=== PATIENT | female | born 1930 | race Caucasian/White ===

== ENCOUNTER 2018-01-25 05:06 | Emergency (ER) | payer OTHER ==
[~2018-01-25] VITALS: Ht 124.5 cm; Wt 43.7 kg
[2018-01-25 05:11] VITALS: TEMP 36.4; Ht 124.5 cm; Wt 43.7 kg
[2018-01-25] MEDS ORDERED: MULT-506 PO (05:47)
--- NOTE | 2018-01-25 06:22 | EMERGENCY ROOM VISIT NOTE ---
History Report prepared by Carlos: Zonia Jha Under the Supervision of: Dr. Margret Graham D.O. First contact with patient: 05:19 Chief Complaint: OTHER COMPLAINT Stated Complaint: COLOSTEMY BAG FULL History of Present Illness The patient is a 87 year old female who presents to the Emergency Room with complaints of drainage from her colostomy site beginning this morning. The patient was in [place] with her daughter and son in law. A distant relative picked the patient up and brought her pack to [place] for reversal of colostomy in [facility]. When the relative picked the patient up he was not informed on how to care for the patient's colonoscopy. The patient has a history of high blood pressure, stroke and ischemic bowel which resulted in a colostomy 4 months ago. Source of History: family Onset: a couple hours ago Position: other (colostomy site) Quality: other (leaking) Timing: constant Review of Systems The scribe's documentation has been prepared under my direction and personally reviewed by me in its entirety. I confirm that the note above accurately reflects all work, treatment, procedures, and medical decision making performed by me. Past Medical & Surgical Medical Problems: (1) H/O ischemic bowel disease (2) Hypertension (3) Stroke Family History Patient reports no known family medical history. Social History Smoking Status: Never Smoker Housing Status: lives with family Occupation Status: retired Current/Historical Medications Scheduled Multivitamin (Multivitamin), 1 TAB PO DAILY Allergies Coded Allergies: No Known Allergies (Unverified , 01/25/18) Physical Exam Vital Signs Date Time Temp Pulse Resp B/P (MAP) Pulse Ox O2 Delivery O2 Flow Rate FiO2 01/25/18 06:27 89 18 148/88 93 01/25/18 05:11 36.4 95 18 153/92 93 Room Air Physical Exam Heart: Regular rate and rhythm. There is a normal S1 and S2 with no murmurs, clicks, or gallops appreciated. Lungs: Clear to auscultation bilaterally with no wheezes, rales, or rhonchi. Abdomen: Colostomy appears well established with a small amount of output. Soft , completely nontender, nondistended, with good bowel sounds. There are no palpable pulsatile masses or hepatosplenomegaly. There is no guarding, rigidity , or rebound noted. Medical Decision & Procedures ED Course 0600: The patient was evaluated in room A3. A complete history and physical exam was performed. Nurses cleaned her abdomen and applied a new colostomy bag. They informed the relative on how to care for it as well as provided him with supplies. 0621: Upon reevaluation, the patient is resting. I discussed findings and results with her. She and her family member verbalized agreement of the treatment plan. The patient was discharged home. Medical Decision The patient is a 87 year old female who presents to the Emergency Room with complaints of drainage from her colostomy site beginning this morning. The patient's relative was unable to care for the colostomy. He was instructed on how to do this and given some supplies until he could buy some for her. Medication Reconcilliation Current Medication List: was personally reviewed by me Blood Pressure Screening Patient's blood pressure: Elevated blood pressure Blood pressure disposition: Elevated BP felt to be situational Impression Primary Impression: Colostomy complication Scribe Attestation The scribe's documentation has been prepared under my direction and personally reviewed by me in its entirety. I confirm that the note above accurately reflects all work, treatment, procedures, and medical decision making performed by me. Departure Information Dispostion Home / Self-Care Referrals No Doctor, Assigned (PCP) Forms HOME CARE DOCUMENTATION FORM, IMPORTANT VISIT INFORMATION, WORK / SCHOOL INSTRUCTIONS Patient Instructions My [facility] Additional Instructions Use colostomy bags as directed Follow up with surgeon in [place]
[2018-01-25 06:27] VITALS: BP 148/88; PULSE 89; O2SAT 93
== END 2018-01-25 06:28 | disposition home or self-care (01) ==
LOC: C.EDB 05:08 → C.EDA 06:28
DX: K94.03 Colostomy malfunction (principal); I10 Essential (primary) hypertension; I63.9 Cerebral infarction, unspecified